=== PATIENT | male | born 1995 | race African-American/Black ===

== ENCOUNTER 2023-12-11 14:23 | Inpatient (IN) ==
[2023-12-11 16:01] LABS: ABS Basophils 0.1 10^3/uL (0.0-0.1); ABS Eosinophils 0.3 10^3/uL (0.0-0.5); ABS Lymphocytes 1.6 10^3/uL (1.0-4.8); ABS Monocytes 1.3 10^3/uL (0.0-1.1); ABS Neutrophils 9.4 10^3/uL (1.5-7.6); ABS Nucleated RBC 0.01 10^3/ul; Eosinophil % 2.3 %; Hematocrit 42.7 % (38-53); Hemoglobin 14.4 g/dL (13.2-16.3); Lymphocyte % 12.7 %; Mean Corpuscular Hemoglobin 29.1 pg (27-33); Mean Corpuscular Hgb Conc 33.7 g/dL (31-36); Mean Corpuscular Volume 86.3 fL (80-97); Mean Platelet Volume 6.9 fL (7.5-11.2); Nucleated Red Blood Cells % 0.1 %/100WBC (0.0-0.8); Platelet Count 370 10^3/uL (150-450); Red Blood Count 4.94 10^6/uL (4.06-5.63); Red Cell Distribution Width 12.5 % (12-17); White Blood Count 12.6 10^3/uL (3.6-10.2)
[2023-12-11 16:25] LABS: Albumin 3.9 g/dL (3.2-5.2); Albumin/Globulin Ratio 1.1 (1-3); C Reactive Protein 81.34 mg/L (<8.01); Calcium 9.4 mg/dL (8.6-10.3); Creatinine, Serum 0.92 mg/dL (0.67-1.17); Globulin 3.4 g/dL (2-4); Potassium 4.1 mmol/L (3.5-5.0); Total Bilirubin 0.4 mg/dL (0.2-1.0); Total Protein 7.3 g/dL (6.4-8.9); eGFR CKD-EPI 117.7 (>60)
[2023-12-11 16:39] LABS: TSH Ultra Thyroid Stim Horm 1.49 mcIU/mL (0.34-5.60)
[2023-12-11 17:46] LABS: Urine Appearance Turbid; Urine Bilirubin Negative (Negative); Urine Blood Negative (Negative); Urine Color Yellow; Urine Glucose Negative (Negative); Urine Ketones Negative (Negative); Urine Nitrite Negative (Negative); Urine Protein 1+ (>=30 mg/dL) (Negative); Urine Specific Gravity 1.041 (1.002-1.030); Urine Urobilinogen 1+ (Negative)
[2023-12-11 17:49] LABS: Budding Yeast Present /HPF (Absent); Urine Bacteria Absent /HPF (Absent); Urine Red Blood Cell 1+(3-5/hpf) /HPF (0-Trace); Urine White Blood Cell 2+(11-20/hpf) /HPF (0-Trace)
[2023-12-11 18:18] LABS: Erythrocyte Sed Rate 50 mm/Hr (0-14)
[2023-12-11 18:35] LABS: HIV 4th Generation Preliminary Reactive (Nonreactive)
[2023-12-11] MEDS: cefTRIAXone 1 gm/50 mL D5W 1 GM/50 ML BAG IV ONE (20:55)
[2023-12-11] MEDS ORDERED: Ondansetron 4 mg VIAL 2 MG/ML 2 ml VIAL IV PRN (21:05)
[2023-12-11] MEDS: NS 0.9% 1000 ml BAG 1,000 ML IV SCH (21:25)
[2023-12-11] MEDS: DOXYcycline 100 MG in NS 0.9% 250 ml 250 ML IVPB ONE (21:26)
[2023-12-11 23:10] LABS: Body Fluid Total Nucleated 39794 /mcL
[2023-12-11 23:41] LABS: Body Fluid Appearance Cloudy; Body Fluid Color Yellow; Body Fluid Source Synovial Fluid
[2023-12-12 00:03] LABS: Body Fluid Mono 11 %; Body Fluid NRBC 1; Body Fluid Other Cells 3; Body Fluid Total Cells Counted 200
[2023-12-12 05:58] LABS: Hematocrit 37.7 % (38-53); Mean Corpuscular Hemoglobin 29.7 pg (27-33); Mean Corpuscular Hgb Conc 34.4 g/dL (31-36); Mean Corpuscular Volume 86.4 fL (80-97); Platelet Count 347 10^3/uL (150-450); Red Blood Count 4.37 10^6/uL (4.06-5.63); Red Cell Distribution Width 12.3 % (12-17); White Blood Count 12.9 10^3/uL (3.6-10.2)
[2023-12-12 06:20] LABS: Albumin 3.4 g/dL (3.2-5.2); Albumin/Globulin Ratio 1.2 (1-3); Creatinine, Serum 0.86 mg/dL (0.67-1.17); Globulin 2.9 g/dL (2-4); Magnesium 1.9 mg/dL (1.9-2.7); Potassium 4.4 mmol/L (3.5-5.0); Total Bilirubin 0.3 mg/dL (0.2-1.0); Total Protein 6.3 g/dL (6.4-8.9); eGFR CKD-EPI 122.5 (>60)
[2023-12-12 07:40] LABS: ABS Eosinophils 0.1 10^3/uL (0.0-0.5); ABS Lymphocytes 1.5 10^3/uL (1.0-4.8); ABS Monocytes 1.7 10^3/uL (0.0-1.1); ABS Neutrophils 9.7 10^3/uL (1.5-7.6); ABS Nucleated RBC 0.01 10^3/ul; Eosinophil % 0.4 %; Lymphocyte % 11.4 %; Nucleated Red Blood Cells % 0.1 %/100WBC (0.0-0.8)
[2023-12-12 11:45] LABS: Hepatitis B Surface Antigen Nonreactive (Nonreactive)
[2023-12-12 12:02] LABS: Hepatitis B Surface Ab Not Immune (Immune)
[2023-12-12 12:36] LABS: Chlamydia trachomatis NAA Negative (Negative); Neisseria gonorrhoeae (GC) NAA Negative (Negative)
[2023-12-12] MEDS ORDERED: guaiFENesin/CODIENE 100mg/10mg 5 ML UDC PO PRN (13:01)
[2023-12-12] MEDS: Amphetamine/Dextroam ER 10(NF) 10 mg CAP.ER PO SCH (13:38)
[2023-12-12] MEDS: cefTRIAXone 1 gm/50 mL D5W 1 GM/50 ML BAG IV SCH (22:25)
[2023-12-12] MEDS: Calcium Carb (TUMS) 500 mg CHEW TAB PO PRN (22:25)
[2023-12-13 06:53] LABS: ABS Basophils 0.1 10^3/uL (0.0-0.1); ABS Eosinophils 0.2 10^3/uL (0.0-0.5); ABS Lymphocytes 1.9 10^3/uL (1.0-4.8); ABS Monocytes 0.9 10^3/uL (0.0-1.1); ABS Neutrophils 6.9 10^3/uL (1.5-7.6); Eosinophil % 2.2 %; Hematocrit 37.1 % (38-53); Hemoglobin 12.6 g/dL (13.2-16.3); Lymphocyte % 18.9 %; Mean Corpuscular Hemoglobin 29.7 pg (27-33); Mean Corpuscular Hgb Conc 33.9 g/dL (31-36); Mean Corpuscular Volume 87.5 fL (80-97); Mean Platelet Volume 7.1 fL (7.5-11.2); Platelet Count 338 10^3/uL (150-450); Red Blood Count 4.24 10^6/uL (4.06-5.63); Red Cell Distribution Width 12.3 % (12-17)
[2023-12-13 07:26] LABS: Calcium 8.7 mg/dL (8.6-10.3); Potassium 4.1 mmol/L (3.5-5.0)
[2023-12-13 08:05] LABS: Creatinine, Serum 0.91 mg/dL (0.67-1.17); eGFR CKD-EPI 119.2 (>60)
[2023-12-13] MEDS ORDERED: Amphetamine MIXED SALT 10mgTAB PO SCH ×2 (09:00→19:00)
[2023-12-13] MEDS: Amphetamine/Dextroam ER 10(NF) 10 mg CAP.ER PO SCH (09:56)
[2023-12-13] MEDS ORDERED: Amphetamine/Dextroam ER 10(NF) 10 mg CAP.ER PO SCH (10:00)
[2023-12-13 16:21] LABS: HIV-1 Ab Differentiation,P Negative (Negative); HIV-2 Ab Differentiation,P Negative (Negative)
[2023-12-13] MEDS: Amphetamine MIXED SALT 10mgTAB PO SCH (20:02)
[2023-12-14 08:49] LABS: ALT 19 U/L (7-52); AST 16 U/L (13-39); Albumin 3.4 g/dL (3.2-5.2); Albumin/Globulin Ratio 1.1 (1-3); Alkaline Phosphatase 95 U/L (35-149); Anion Gap 9 mmol/L (2-16); Blood Urea Nitrogen 11 mg/dL (6-24); CO2 Carbon Dioxide 28 mmol/L (22-32); Calcium 9.1 mg/dL (8.6-10.3); Chloride 103 mmol/L (101-111); Creatinine, Serum 0.89 mg/dL (0.67-1.17); Globulin 3.1 g/dL (2-4); Glucose 88 mg/dL (70-100); Potassium 3.9 mmol/L (3.5-5.0); Sodium 140 mmol/L (135-145); Total Bilirubin 0.4 mg/dL (0.2-1.0); Total Protein 6.5 g/dL (6.4-8.9); eGFR CKD-EPI 121.2 (>60)
[2023-12-14 15:35] LABS: Anaplasma phagocytophilum Negative (Negative); B. miyamotoi PCR, B Negative (Negative); Babesia divergens/MO-1 Negative (Negative); Babesia ducani Negative (Negative); Ehrlichia chaffeensis Negative (Negative); Ehrlichia ewingii/canis Negative (Negative); Ehrlichia muris eauclairensis Negative (Negative)
[2023-12-14 21:46] LABS: % Iron Saturation 41 % (15-55); .Transferrin 152 mg/dL (203-362); Iron 87 ug/dL (50-212); Rheumatoid Factor < 10 IU/mL (<15); Total Iron Binding Capacity 213 mcg/dL (250-450); Unsaturated Iron Binding 126 ug/dL
[2023-12-14 22:06] LABS: Ferritin 169.7 ng/mL (24-336)
[2023-12-15 06:30] LABS: ABS Basophils 0.1 10^3/uL (0.0-0.1); ABS Eosinophils 0.2 10^3/uL (0.0-0.5); ABS Lymphocytes 2.9 10^3/uL (1.0-4.8); ABS Monocytes 0.8 10^3/uL (0.0-1.1); ABS Neutrophils 8.1 10^3/uL (1.5-7.6); Eosinophil % 1.8 %; Hematocrit 39.6 % (38-53); Hemoglobin 13.3 g/dL (13.2-16.3); Lymphocyte % 23.9 %; Mean Corpuscular Hemoglobin 29.2 pg (27-33); Mean Corpuscular Hgb Conc 33.6 g/dL (31-36); Mean Corpuscular Volume 86.8 fL (80-97); Platelet Count 395 10^3/uL (150-450); Red Blood Count 4.57 10^6/uL (4.06-5.63); Red Cell Distribution Width 12.6 % (12-17); White Blood Count 12.1 10^3/uL (3.6-10.2)
[2023-12-15 14:54] LABS: HIV-1 RNA (PCR) Undetected copies/mL (Undetected)
[2023-12-16 13:51] VITALS: BP 147/84
[2023-12-16] MEDS: cefTRIAXone 1 gm/50 mL D5W 1 GM/50 ML BAG IV ONE (14:51)
[2023-12-16 19:28] LABS: Chlamydia trachomatis NAA Negative (Negative); Neisseria gonorrhoeae (GC) NAA Negative (Negative)
[2023-12-18 16:45] LABS: Cyclic Citrullinated Pept IgG <15.6 U
== END 2023-12-16 16:15 | disposition home or self-care (01) | DRG 344 ==
LOC: ED 14:23 → SUATTDRO 21:05 → EDHOLD 21:05 → SSU 12-12 00:01 → MED 12-13 18:12
PROVIDERS: ADMIT Hospitalist; ATTEND Internal Medicine